=== PATIENT | female | born 1975 | race African-American/Black ===

== ENCOUNTER 2021-04-11 12:34 | Inpatient (IN) | payer MEDICAID ==
[~2021-04-11] VITALS: Ht 165.1 cm; Wt 112.5 kg
[2021-04-11] MEDS ORDERED: ASPIRIN (12:44)
[2021-04-11] MEDS ORDERED: FURO20TA90 (12:44)
--- NOTE | 2021-04-11 13:10 | NUR ---
Pt BIB [facility], reports pt picked-up in front of [employer], originally called for CP, but pt took her own ASA PT [facility] arrival and CP resolved; then just c/o dyspnea. In ER, pt SPO2=96+, but placed pt on 2lpm O2 via NC. Also c/o a "knot" on her waistline x 1 week. Pt denies CP, dizziness, n/v, no other complaints, no distress noted.
[2021-04-11 15:00] LABS: CREATININE 0.9 mg/dL (0.6-1.3); POTASSIUM 4.1 mmol/L (3.5-5.1)
[2021-04-11 15:03] LABS: HEMATOCRIT 37.9 % (31.2-41.9); MEAN CORPUSCULAR HEMOGLOBIN 20.6 uug (24.7-32.8); MEAN CORPUSCULAR VOLUME 73.7 fL (75.5-95.3); PLATELET COUNT (AUTO) 367 K/uL (179-408)
[2021-04-11 15:12] LABS: BILIRUBIN,DIRECT 0.5 mg/dL (0.0-0.2); BILIRUBIN,TOTAL 0.9 mg/dL (0.2-1.0); TOTAL PROTEIN, SERUM 6.4 g/dL (6.4-8.2)
[2021-04-11 16:22] LABS: LYMPHOCYTES % (MANUAL) 35 % (20-40); MONOCYTES % (MANUAL) 11 % (2-10); NEUTROPHILS % (MANUAL) 54 % (42-75)
[2021-04-11] MEDS ORDERED: SWABABLE VALVE TRANSFER SET EA MC ONE (18:03)
[2021-04-11] MEDS ORDERED: IV NORMAL SALINE 250 ML IV ONE (18:03)
[2021-04-11] MEDS ORDERED: IOHEXOL 350 100 ML INFUS..BTL ONE (18:03)
[2021-04-11] MEDS ORDERED: FUROSEMIDE 40 MG/4 ML VIAL IV ONE (19:45)
[2021-04-11] MEDS ORDERED: HYDROMORPHONE 1 MG/1 ML DISP.SYRIN IV ONE (20:00)
[2021-04-11] MEDS ORDERED: MAGNESIUM HYDROXIDE 30 ML LIQUID UDC PO PRN (20:00)
[2021-04-11] MEDS ORDERED: ONDANSETRON 4 MG/2 ML VIAL IV PRN (20:00)
[2021-04-11] MEDS ORDERED: Z GUARD REMEDY PASTE 57 GM TUBE TOP PRN (20:00)
[2021-04-11] MEDS ORDERED: FUROSEMIDE 20 MG/2 ML VIAL ONE (20:12)
[2021-04-11] MEDS ORDERED: HYDROMORPHONE 1 MG/1 ML DISP.SYRIN ONE (20:12)
--- NOTE | 2021-04-11 22:05 | NUR ---
GAVE REPORT TO LUISA CHANEL GOING TO ROOM 315 TELE BED.
--- NOTE | 2021-04-11 22:30 | NUR ---
Pt. admitted to TELE , under care of Dr. QUIROZ DX: BILATERAL PLEURAL EFFUSION Belongs List completed
--- NOTE | 2021-04-11 22:40 | NUR ---
RECEIVED PT FROM ER VIA GURNEY. UNDER THE CARE OF DR. QUIROZ. DX: ACUTE CHF. PT IN NO ACUTE DISTRESS. IV INTACT. BELONGING LIST DONE. PT CONTRABAND THINGS ON THE CONTRABAND LOCKERS. [facility] ASSESSMENT DONE. ADMISSION PROCESS AND CARE PLAN INITIATED. PT ON 3L NASAL CANNULA. SAFETY AND COMFORT PROVIDED.WILL CONTINUE TO MONITOR.
--- NOTE | 2021-04-11 22:50 | NUR ---
PT SHOUTED AT STAFF WHEN WE ARE CHECKING HER BELONGINGS. EXPLAINED TO HER THAT ITS PROTOCOL TO CHECK HER BELONGINGS. CONTRABAND ITEMS THAT PT HAD WAS PUT ON LOCKER.
[2021-04-12] MEDS: ENOXAPARIN SODIUM 40 MG/0.4 ML DISP.SYRIN SQ SCH ×2 (00:07→20:24)
[2021-04-12] MEDS ORDERED: CEFTRIAXONE /D5W 50ML IVPB **ER PYXIS IV ONE (00:17)
[2021-04-12] MEDS ORDERED: AZITHROMYCIN 500 MG VIAL IV ONE (00:17)
[2021-04-12 00:33] VITALS: BP 108/85
[2021-04-12] MEDS: CEFTRIAXONE 1 G in IV DEXTROSE 5% 50 ML IV SCH ×2 (00:43→22:00)
[2021-04-12] MEDS: AZITHROMYCIN IV 500 MG in IV DEXTROSE 5% 250 ML IV SCH ×2 (01:58→22:00)
--- NOTE | 2021-04-12 03:02 | NUR ---
NOTIFY DR. ZEPEDA REGRADING PT REFUSING HER HEART MONITOR.
[2021-04-12] MEDS ORDERED: HALOPERIDOL LACTATE 5 MG/1 ML VIAL IM STA (03:23)
--- NOTE | 2021-04-12 03:44 | NUR ---
PT ANXIOUS AND AGITATED. NOTIFY ANGELI ZEPEDA DNP. ANGELI ZEPEDA DNP ORDERED HALDOL 0.5MG IM ONETIME. Addendum: 04/12/21 at 0349 by CHRISTA SHAH RN DOSE OF THE MEDICATION IS 5MG HALDOL IM ONETIME.
--- NOTE | 2021-04-12 03:49 | NUR ---
PT ANXIOUS AND AGITATED. NOTIFY ANGELI ZEPEDA DNP. ANGELI ZEPEDA DNP ORDERED HALDOL 5MG IM ONETIME.
--- NOTE | 2021-04-12 04:14 | NUR ---
PT NONCOMPLIANT WITH CARE. PT REMOVED AND REFUSED HER HEART MONITOR. PT REFUSED HER HALDOL MEDICATION. PT ALSO STATED SHE WOULD LIKE TO BE NO CODE AND PT WOULD LIKE TO BE TRANSFER TO ANOTHER HOSPITAL.
--- NOTE | 2021-04-12 06:04 | NUR ---
PT REFUSED HER VITAL SIGNS TO BE MONITOR. PT REFUSED HER PROTONIX. PT NONCOMPLIANT WITH CARE. PT ON ROOM AIR. PT IN NO ACUTE DISTRESS. PT REFUSING TO PUT HER NASAL CANNULA BUT IN NO ACUTE RESPIRATORY DISTRESS. PT REFUSED HER HEART MONITOR. SAFETY AND COMFORT PROVIDED. WILL ENDORSE TO INCOMING NURSE FOR CONTINUITY OF CARE.
[2021-04-12 06:59] LABS: MEAN CORPUSCULAR HEMOGLOBIN 20.9 uug (24.7-32.8); MEAN CORPUSCULAR VOLUME 76.4 fL (75.5-95.3); PLATELET COUNT (AUTO) 358 K/uL (179-408)
[2021-04-12] MEDS ORDERED: PANTOPRAZOLE SODIUM 40 MG TABLET.DR PO SCH (07:00)
[2021-04-12 07:05] LABS: MAGNESIUM 1.8 mg/dL (1.8-2.4); PHOSPHOROUS 4.4 mg/dL (2.5-4.9); POTASSIUM 3.9 mmol/L (3.5-5.1)
[2021-04-12 08:08] LABS: THYROID STIMULATING HORMONE 4.445 mIU/mL (0.358-3.740)
[2021-04-12] MEDS ORDERED: FUROSEMIDE 40 MG/4 ML VIAL IV SCH (09:00)
--- NOTE | 2021-04-12 09:00 | NUR ---
PT IN BED RESTING, CALL LIGHT WITHIN REACH, BED LOW AND LOCKED, PT BRP WITH CANE AT BEDSIDE. PT RIGHT EYE SWOLLEN AND EYE BALL IS RED, PT STATED SHE HIT HERSELF FOR BEING HOMELESS. PT ON 2L O2 SATURATING AT 95%, NO SIGNS OF DISTRESS NO REPORTS ON PAIN AT THIS TIME.
[2021-04-12] MEDS: PANTOPRAZOLE SODIUM 40 MG TABLET.DR PO SCH (09:47)
[2021-04-12 11:24] VITALS: BP 111/67
[2021-04-12] MEDS: ACETAMINOPHEN 325 MG TABLET PO PRN (12:10)
--- NOTE | 2021-04-12 13:00 | NUR ---
PT IN ROOM SPEAKING TO SELF DUE TO HALLUCINATIONS PERIODICALLY. MD MADE AWARE, PSYCH CONSULT PENDING
[2021-04-12 15:17] VITALS: BP 121/69
[2021-04-12] MEDS: FUROSEMIDE 40 MG/4 ML VIAL IV SCH (18:20)
--- NOTE | 2021-04-12 19:30 | NUR ---
Received pt in bed, awake and verbally responsive, able to make needs known. Refused to put tele leads on. MD aware. Denies any pain or discomfort. IV access intact and patent. Safety measures initiated, call light within reach.
[2021-04-12 20:00] VITALS: BP 138/78
--- NOTE | 2021-04-12 22:25 | NUR ---
Pt refused all due medications including IV antibiotics. Bertram Thompson NP notified.
[2021-04-13 04:00] VITALS: BP 129/75
--- NOTE | 2021-04-13 06:00 | NUR ---
No signs of acute distress noted through the night. Tolerated due medications well. New IV access inserted on R wrist, intact and patent. Safety measures maintained at all times. All needs attended to and met. Pending psych consult.
[2021-04-13] MEDS: PANTOPRAZOLE SODIUM 40 MG TABLET.DR PO SCH (06:15)
[2021-04-13 06:17] LABS: MEAN CORPUSCULAR HEMOGLOBIN 21.2 uug (24.7-32.8); MEAN CORPUSCULAR VOLUME 73.3 fL (75.5-95.3); PLATELET COUNT (AUTO) 362 K/uL (179-408)
[2021-04-13 06:28] LABS: CREATININE 0.9 mg/dL (0.6-1.3); MAGNESIUM 1.5 mg/dL (1.8-2.4); PHOSPHOROUS 4.1 mg/dL (2.5-4.9); POTASSIUM 3.9 mmol/L (3.5-5.1)
[2021-04-13] MEDS: ACETAMINOPHEN 325 MG TABLET PO PRN ×2 (07:36→20:20)
[2021-04-13 08:27] VITALS: BP 124/78
[2021-04-13] MEDS: FUROSEMIDE 40 MG/4 ML VIAL IV SCH ×3 (08:38→17:10)
[2021-04-13] MEDS: ASPIRIN EC 81 MG TABLET.DR PO SCH (08:38)
[2021-04-13] MEDS ORDERED: MAGNESIUM SULFATE/D5W 100 ML IV SCH ×2 (09:30→09:45)
[2021-04-13] MEDS: THERAHONEY GEL 1.5 OZ TUBE TOP SCH (09:38)
[2021-04-13] MEDS ORDERED: FUROSEMIDE 40 MG/4 ML VIAL IV SCH (10:00)
[2021-04-13] MEDS: POTASSIUM CHLORIDE 20 MEQ TAB.PRT.SR PO SCH ×3 (11:00→13:37)
[2021-04-13] MEDS: MAGNESIUM OXIDE 400 MG TABLET PO SCH ×2 (11:04→17:10)
[2021-04-13 11:19] VITALS: BP 109/71
[2021-04-13 15:51] VITALS: BP 126/80
[2021-04-13] MEDS: ENOXAPARIN SODIUM 40 MG/0.4 ML DISP.SYRIN SQ SCH (20:21)
[2021-04-13 20:29] VITALS: BP 112/79
[2021-04-13] MEDS ORDERED: AZITHROMYCIN 250 MG TABLET PO SCH (21:00)
[2021-04-13] MEDS ORDERED: CEFTRIAXONE 2 G in IV DEXTROSE 5% 100 ML IV SCH (22:00)
[2021-04-14 00:09] VITALS: BP 115/78
[2021-04-14 04:41] VITALS: BP 117/76
--- NOTE | 2021-04-14 05:21 | NUR ---
Pt slept intermittently throughout the night. Denies chest pain or SOB. Evaluated by Dr. Hook and started on Cogentin and Haldol. No distress noted at this time. One episode of nausea, given Zofran, tolerated well and nausea subsided. Pt still refusing Tele at this time. Safety and comfort provided. No other issues or concerns at this time, will endorse to day shift.
[2021-04-14] MEDS: ACETAMINOPHEN 325 MG TABLET PO PRN (05:38)
[2021-04-14] MEDS: PANTOPRAZOLE SODIUM 40 MG TABLET.DR PO SCH (06:02)
[2021-04-14 06:31] LABS: HEMATOCRIT 33.2 % (31.2-41.9); MEAN CORPUSCULAR HEMOGLOBIN 21.3 uug (24.7-32.8); MEAN CORPUSCULAR VOLUME 72.7 fL (75.5-95.3); PLATELET COUNT (AUTO) 342 K/uL (179-408)
[2021-04-14 07:15] LABS: MAGNESIUM 1.4 mg/dL (1.8-2.4)
--- NOTE | 2021-04-14 08:00 | NUR ---
Received patient resting but easily arousable. No respiratory distress noted. Denies pain or sob at this time. Patient refusing residential monitor. Patient noted talking to herself and with a foul mouth.
[2021-04-14 08:48] LABS: BILIRUBIN,TOTAL 0.5 mg/dL (0.2-1.0); CREATININE 0.9 mg/dL (0.6-1.3); MAGNESIUM 1.4 mg/dL (1.8-2.4); PHOSPHOROUS 4.5 mg/dL (2.5-4.9); TOTAL PROTEIN, SERUM 6.3 g/dL (6.4-8.2)
[2021-04-14] MEDS: ASPIRIN EC 81 MG TABLET.DR PO SCH (08:53)
[2021-04-14] MEDS ORDERED: HALOPERIDOL 5 MG TABLET PO SCH (09:00)
[2021-04-14] MEDS ORDERED: BENZTROPINE MESYLATE 1 MG TABLET PO SCH (09:00)
[2021-04-14] MEDS ORDERED: MAGNESIUM SULFATE/D5W 100 ML IV SCH (09:15)
[2021-04-14] MEDS: THERAHONEY GEL 1.5 OZ TUBE TOP SCH (09:16)
--- NOTE | 2021-04-14 09:24 | NUR ---
Patient refused Cogentin and Haldol this morning. Stated she "does not want antipsychotic meds bec she's not crazy. She is just ." Noted patient talks to herself in the room and has angry outbursts at times. Reoriented the patient and will continue to monitor.
[2021-04-14 09:52] LABS: PHOSPHOROUS 4.6 mg/dL (2.5-4.9)
[2021-04-14 10:08] LABS: LYMPHOCYTES % (MANUAL) 36 % (20-40); MONOCYTES % (MANUAL) 8 % (2-10); NEUTROPHILS % (MANUAL) 56 % (42-75)
--- NOTE | 2021-04-14 11:45 | NUR ---
Patient wants to leave AMA. She was seen by Dr Cuenca this morning. Explained to the patient risks of leaving against medical advice and the benefits of staying to continue treatment. Patient refuses to stay and wants to leave immediately. Refuses to have her wounds redressed. Charge nurse aware.
[2021-04-14 12:00] VITALS: BP 126/72
[2021-04-14] MEDS ORDERED: POTASSIUM CHLORIDE 20 MEQ POWDER PACKET PO SCH (12:00)
[2021-04-14] MEDS ORDERED: BUMETANIDE IV ONE (12:00)
[2021-04-14] MEDS ORDERED: POTASSIUM CHLORIDE 20 MEQ TAB.PRT.SR PO SCH (12:00)
[2021-04-14] MEDS ORDERED: NORMAL SALINE IV ONE (12:00)
--- NOTE | 2021-04-14 12:00 | NUR ---
Patient given her items from the contraband locker e.g cigarettes, some pills, unopened Vodka bottle. Patient said she has all her belongings and signed sheet.
--- NOTE | 2021-04-14 12:15 | NUR ---
Patient left against medical advice. No respiratory distress. Denies pain or discomfort. Refused to have her wounds redressed. Iv access removed. Patient still insisting the hospital is not for her because she believes in the power of [employer]. Charge nurse aware. Dr. Cuenca is aware.
[2021-04-14] MEDS ORDERED: SOD FERRIC GLUC COMPLX/SUCROSE 125 MG in IV NORMAL SALINE 100 ML IV SCH (14:00)
== END 2021-04-14 12:15 | disposition left against medical advice (07) | DRG 139 ==
LOC: ER 12:34 → TELE3 22:07 → MEDSURG3 04-14 11:25
PROVIDERS: ADMIT Student in an Organized Health Care Education/Training Program; ATTEND Student in an Organized Health Care Education/Training Program
PROC: 0JBQ0ZZ Excision of Right Foot Subcutaneous Tissue and Fascia, Open Approach (ICD-10-PCS; principal; 2021-04-12)
PROC: 0JBP0ZZ Excision of Left Lower Leg Subcutaneous Tissue and Fascia, Open Approach (ICD-10-PCS; principal; 2021-04-12)
PROC: 0JBN0ZZ Excision of Right Lower Leg Subcutaneous Tissue and Fascia, Open Approach (ICD-10-PCS; principal; 2021-04-12)
DX: J18.9 Pneumonia, unspecified organism (principal); J96.01 Acute respiratory failure with hypoxia; I50.23 Acute on chronic systolic (congestive) heart failure; E44.0 Moderate protein-calorie malnutrition; R18.8 Other ascites; I83.018 Varicose veins of right lower extremity with ulcer other part of lower leg; I83.028 Varicose veins of left lower extremity with ulcer other part of lower leg; L97.319 Non-pressure chronic ulcer of right ankle with unspecified severity; I11.0 Hypertensive heart disease with heart failure; I50.82 Biventricular heart failure; Z59.0 Homelessness; I87.2 Venous insufficiency (chronic) (peripheral); F29 Unspecified psychosis not due to a substance or known physiological condition; I87.8 Other specified disorders of veins; D50.9 Iron deficiency anemia, unspecified; K57.90 Diverticulosis of intestine, part unspecified, without perforation or abscess without bleeding; K74.60 Unspecified cirrhosis of liver; Z90.49 Acquired absence of other specified parts of digestive tract; L97.819 Non-pressure chronic ulcer of other part of right lower leg with unspecified severity; L97.829 Non-pressure chronic ulcer of other part of left lower leg with unspecified severity
CPT/HCPCS: 36415; 70030-TC; 71045; 71275; 82378; 82747; 82784; 83550; 83605; 83615; 83735; 84100; 84155; 84165; 84443; 85014; 85025; 85730; 86300; 86334; 87040; 93005; 93307; 97161; A4663; A6209; G0378; J0456; J0696; J1170; J1630; J1650; J1940; J2405; J2916; J3475; J3490; J7030; J7050; J7060; Q0144; Q9967